=== PATIENT | male | born 1995 | race Caucasian/White ===

== ENCOUNTER 2018-08-09 05:57 | Emergency (ER) | payer OTHER ==
--- NOTE | 2018-08-09 06:04 | ER Report ---
History and Physical Time Seen By MD: 06:04 (LUZ ELENA PERAZA MD) HPI/ROS CHIEF COMPLAINT: Right lower quadrant abdominal pain HISTORY OF PRESENT ILLNESS: Patient is a 22-year-old male who is otherwise healthy who presents to the emergency department with complaint of sudden onset right-sided flank pain that comes in waves. Currently pain is 8 out of 10 in intensity. He denies any significant nausea associated with the pain. Denies any palliative or provoking features. Symptoms started about 2 hours prior to presentation and were sudden onset. Patient apparently is on a fasting diet has not eaten any food in the last 36 hours although he states he has been drinking fluids. He denies history of kidney stones. Denies any blood in his stool. Denies difficulty urinating or defecating. REVIEW OF SYSTEMS: Constitutional: No fever, no chills. Eyes: No discharge. ENT: No sore throat. Cardiovascular: No chest pain, no palpitations. Respiratory: No cough, no shortness of breath. Gastrointestinal: Right-sided flank pain and right lower quadrant abdominal pain Genitourinary: No hematuria. Musculoskeletal: No back pain. Skin: No rashes. Neurological: No headache. (LUZ ELENA PERAZA MD) Allergies: Coded Allergies: No Known Drug Allergies (Unverified , 08/09/18) Home Meds Active Scripts Ondansetron Hcl (ZOFRAN) 4 Mg Tablet, 4 MG PO Q8H for Nausea, #15 TAB 0 Refills Prov:LUZ ELENA PERAZA MD 08/09/18 Oxycodone Hcl/Acetaminophen (PERCOCET 5-325 MG TABLET) 1 Each Tablet, 1 EACH PO Q4H for PAIN, #25 TAB 0 Refills Prov:LUZ ELENA PERAZA MD 08/09/18 Reported Medications Multivitamin With Minerals (MULTIPLE VITAMIN) 1 Each Tablet, 1 EACH PO QDAY, TAB 08/09/18 Past Medical/Surgical History No significant past medical history (LUZ ELENA PERAZA MD) Constitutional Vital Sign - Last 24 Hours 08/09/18 06:03 Temp 98.0 Pulse 42 Resp 16 B/P (MAP) 162/110 Pulse Ox 94 O2 Delivery Room Air (LUZ ELENA ALEXANDER MD) Physical Exam General Appearance: The patient is alert, has no immediate need for airway protection and no signs of toxicity. [ ] Eyes: Pupils equal and round no pallor or injection. ENT, Mouth: Mucous membranes are moist. Respiratory: There are no retractions, lungs are clear to auscultation. Cardiovascular: Regular rate and rhythm. [ ] Gastrointestinal: Abdomen is soft and non tender, no masses, bowel sounds normal. No guarding or peritoneal signs, negative Rovsing sign Neurological: Awake alert Skin: Warm and dry, no rashes. Musculoskeletal: Neck is supple non tender. Extremities are nontender, nonswollen and have full range of motion. Bedside ultrasound was performed which revealed moderate hydronephrosis to the right kidney.[ ] (LUZ ELENA PERAZA MD) Medical Decision Making Data Points Result Diagram: 08/09/18 0610 08/09/18 0610 Laboratory Hematology Test 08/09/18 06:10 Red Blood Count 5.99 M/uL (4.00-5.60) Mean Corpuscular Volume 91.6 fL (80.0-96.0) Mean Corpuscular Hemoglobin 30.6 pg (26.0-33.0) Mean Corpuscular Hemoglobin Concent 33.4 g/dL (32.0-36.0) Red Cell Distribution Width 14.4 % (11.5-14.5) Mean Platelet Volume 10.5 fL (7.2-11.1) Neutrophils (%) (Auto) 74.2 % (39.4-72.5) Lymphocytes (%) (Auto) 14.8 % (17.6-49.6) Monocytes (%) (Auto) 8.8 % (4.1-12.4) Eosinophils (%) (Auto) 1.4 % (0.4-6.7) Basophils (%) (Auto) 0.8 % (0.3-1.4) Nucleated RBC Relative Count (auto) 0.1 /100WBC Neutrophils # (Auto) 6.8 K/uL (2.0-7.4) Lymphocytes # (Auto) 1.4 K/uL (1.3-3.6) Monocytes # (Auto) 0.8 K/uL (0.3-1.0) Eosinophils # (Auto) 0.1 K/uL (0.0-0.5) Basophils # (Auto) 0.1 K/uL (0.0-0.1) Nucleated RBC Absolute Count (auto) 0.01 K/uL Sodium Level 139 mmol/L (137-145) Potassium Level 3.4 mmol/L (3.5-5.0) Chloride Level 102 mmol/L (98-107) Carbon Dioxide Level 24 mmol/L (22-30) Blood Urea Nitrogen 8 mg/dl (9-21) Creatinine 1.00 mg/dl (0.66-1.25) Glomerular Filtration Rate Calc > 60.0 Random Glucose 132 mg/dl (75-110) Calcium Level 10.2 mg/dl (8.4-10.2) Total Bilirubin 1.2 mg/dl (0.2-1.3) Aspartate Amino Transf (AST/SGOT) 26 U/L (0-35) Alanine Aminotransferase (ALT/SGPT) 20 U/L (0-56) Alkaline Phosphatase 67 U/L (0-126) Total Protein 8.2 g/dl (6.3-8.2) Albumin 5.2 g/dl (3.5-5.0) Lipase 104 U/L (23-300) Helicobacter pylori IgG Antibody Negative (NEGATIVE) Chemistry Test 08/09/18 06:10 White Blood Count 9.1 k/uL (4.5-11.0) Red Blood Count 5.99 M/uL (4.00-5.60) Hemoglobin 18.3 g/dL (14.0-18.0) Hematocrit 54.8 % (42.0-52.0) Mean Corpuscular Volume 91.6 fL (80.0-96.0) Mean Corpuscular Hemoglobin 30.6 pg (26.0-33.0) Mean Corpuscular Hemoglobin Concent 33.4 g/dL (32.0-36.0) Red Cell Distribution Width 14.4 % (11.5-14.5) Platelet Count 234 K/uL (150-450) Mean Platelet Volume 10.5 fL (7.2-11.1) Neutrophils (%) (Auto) 74.2 % (39.4-72.5) Lymphocytes (%) (Auto) 14.8 % (17.6-49.6) Monocytes (%) (Auto) 8.8 % (4.1-12.4) Eosinophils (%) (Auto) 1.4 % (0.4-6.7) Basophils (%) (Auto) 0.8 % (0.3-1.4) Nucleated RBC Relative Count (auto) 0.1 /100WBC Neutrophils # (Auto) 6.8 K/uL (2.0-7.4) Lymphocytes # (Auto) 1.4 K/uL (1.3-3.6) Monocytes # (Auto) 0.8 K/uL (0.3-1.0) Eosinophils # (Auto) 0.1 K/uL (0.0-0.5) Basophils # (Auto) 0.1 K/uL (0.0-0.1) Nucleated RBC Absolute Count (auto) 0.01 K/uL Glomerular Filtration Rate Calc > 60.0 Calcium Level 10.2 mg/dl (8.4-10.2) Total Bilirubin 1.2 mg/dl (0.2-1.3) Aspartate Amino Transf (AST/SGOT) 26 U/L (0-35) Alanine Aminotransferase (ALT/SGPT) 20 U/L (0-56) Alkaline Phosphatase 67 U/L (0-126) Total Protein 8.2 g/dl (6.3-8.2) Albumin 5.2 g/dl (3.5-5.0) Lipase 104 U/L (23-300) Helicobacter pylori IgG Antibody Negative (NEGATIVE) (LUZ ELENA ALEXANDER MD) ED Course/Re-evaluation ED Course 08/09/2018 6:25:37 am bedside ultrasound suggestive of ureterolithiasis. At this time will be IV pain medication along with Zofran. We'll check abdominal labs along with noncontrast CT of the abdomen and pelvis Decision to Disposition Date: Aug 09, 2018 Decision to Disposition Time: 08:20 (LUZ ELENA PERAZA MD) Depart Departure Latest Vital Signs Vital Signs Date Time Temp Pulse Resp B/P (MAP) Pulse Ox O2 Delivery O2 Flow Rate FiO2 08/09/18 06:03 98.0 42 16 162/110 94 Room Air (LUZ ELENA ALEXANDER MD) Impression: Primary Impression: Kidney stone Condition: Improved Disposition: HOME OR SELF-CARE New Scripts Ondansetron Hcl (ZOFRAN) 4 Mg Tablet 4 MG PO Q8H for Nausea, #15 TAB 0 Refills Prov: LUZ ELENA PERAZA MD 08/09/18 Oxycodone Hcl/Acetaminophen (PERCOCET 5-325 MG TABLET) 1 Each Tablet 1 EACH PO Q4H for PAIN, #25 TAB 0 Refills Prov: LUZ ELENA PERAZA MD 08/09/18 Additional Instructions: You have a kidney stone on the right side that is likely the cause of your pain. Your CT also showed other minor findings that are unlikely the cause of your pain; small stones in both kidneys, a mildly enlarged prostate, and small right sided and umbilical hernias (defects in the muscle tay). You should review these findings with your primary doctor to determine if you need further testing. LUZ ELENA PERAZA MD Aug 09, 2018 06:04 LUZ ELENA ALEXANDER MD Aug 09, 2018 07:20
[2018-08-09] MEDS ORDERED: MULT-1335 PO (06:09)
[2018-08-09] MEDS ORDERED: NS(*) 0.9% 1000 ML BAG 1,000 ML IV ONE (06:16)
[2018-08-09] MEDS ORDERED: ONDANSETRON 4 MG/2 ML VIAL IVP ONE (06:25)
[2018-08-09] MEDS ORDERED: KETOROLAC 15 MG/ML VIAL IVP ONE (06:25)
[2018-08-09] MEDS ORDERED: OXYC-865 PO (06:27)
[2018-08-09] MEDS ORDERED: ONDA4TAB97 PO (06:27)
[2018-08-09 06:39] LABS: PLATELET COUNT, AUTOMATED 234 K/uL (150-450)
--- NOTE | 2018-08-09 07:11 | RADIOLOGY IMAGING REPORT ---
FACILITY: [facility] PATIENT NAME: Pollo Gomes : 1995 MR: [id number] V: [id number] EXAM DATE: ORDERING PHYSICIAN: LUZ ELENA PERAZA TECHNOLOGIST: Location: [facility] Patient: Pollo Gomes : 1995 Visit/Account:[id number] Date of Sevice: 08/09/2018 CT ABDOMEN PELVIS W/O CON HISTORY: Acute right flank pain. Evaluate for hydronephrosis. COMPARISON: None. TECHNIQUE: Axial images were obtained from the lung bases through the symphysis pubis without intrave nous contrast. Sagittal and coronal reformats were performed. One of the following dose optimization techniques was utilized in the performance of this exam: Autom ated exposure control; adjustment of the mA and/or kV according to the patient's size; or use of an i terative reconstruction technique. Specific details can be referenced in the facility's radiology CT exam operational policy. CONTRAST: None. FINDINGS: Lower chest: There is a 3 x 4 mm left lower lobe pulmonary nodule (image 14 series 2). Smaller nodule on image 18 in the left lower lobe. In patients less than 35 years of age without a known history of malignancy, pulmonary nodules are typically post infectious or inflammatory. Liver: 9 mm cyst in segment IV. Gallbladder/biliary: Normal. Pancreas: Normal. Spleen: Normal. Adrenals: Normal. Kidneys/ureters/bladder: There is mild right hydronephrosis and hydroureter secondary to a 3 mm obstr ucting ureteral calculus at the junction of the proximal and middle thirds. There are 2 nonobstructin g calculi in the right kidney, the largest measuring 3 mm. There is a developing calculus in the infe rior left kidney. The left ureter and bladder are normal. The bladder is not well-distended. GI/mesentery/peritoneal cavity: There is no bowel obstruction. There is no wall thickening or pericol onic stranding. The appendix is normal. No free air or free fluid. Vessels: No atherosclerotic disease. No aneurysm. Nodes: Normal. Pelvis: There are coarse prostate calcifications. Prostate measures 5.2 cm, prominent to enlarged for age. There is a small fat-containing right inguinal hernia. Bones/vertebra/soft tissues: There are numerous Schmorl nodes. No listhesis. Minimal wedging of T10 a nd T11 is likely physiologic. There is a tiny fat-containing umbilical hernia. IMPRESSION: 1. 3 mm obstructing calculus at the junction of the proximal and mid right ureter causes mild hydrone phrosis and hydroureter. 2. Bilateral nonobstructing renal calculi. 3. Prostate is prominent to mildly enlarged for age. 4. Small fat-containing right inguinal hernia and tiny fat-containing umbilical hernia. Report Dictated By: Ayla Caldwell at 08/09/2018 6:58 AM Report E-Signed By: Ayla Caldwell at 08/09/2018 7:07 AM WSN:[id number]
[2018-08-09] MEDS ORDERED: MORPHINE 2 MG/ML SYR IVP ONE (07:25)
[2018-08-09 07:30] VITALS: BP 128/85
== END 2018-08-09 08:00 | disposition home or self-care (01) ==
LOC: ER 06:18
DX: N13.2 Hydronephrosis with renal and ureteral calculous obstruction (principal); N13.4 Hydroureter
CPT/HCPCS: 74176; 83690; 85025; 86677; 96361; 96374; 96375; 99284; J1885; J2270; J2405; J7030; 82040; 82247; 82310; 82374; 82435; 82565; 82947; 84075; 84132; 84155; 84295; 84450; 84460; 84520